=== PATIENT | female | born 1955 | race Caucasian/White ===

== ENCOUNTER 2016-12-20 15:18 | Emergency (ER) | payer OTHER ==
[~2016-12-20] VITALS: Ht 152.4 cm; Wt 72.0 kg
[~2016-12-20 15:18] MED LIST: CEPH500C3 PO; CLAR10TA7 PO; FLON0.053; LISI-360 PO; MEVA40TA PO; NEXI20CA PO
[2016-12-20 15:19] VITALS: BP 195/92; PULSE 66; RESP 20; TEMP 97.5; O2SAT 100
--- NOTE | 2016-12-20 15:23 | PD ---
Physical Exam Time Seen by Provider: 15:21 Narrative 61 y/o female presents for evaluation of laceration to L hand sustained at 12pm today while attempting to de-pit an avocado. Right handed. Vital signs reviewed. Seen at triage desk. Awaiting bed placement. Data Data Last Documented VS Vital Signs Date Time Temp Pulse Resp B/P Pulse Ox O2 Delivery O2 Flow Rate FiO2 12/20/16 15:19 97.5 66 20 195/92 100 Room Air [facility] Medical Record Reviewed: Yes Supervised Visit with NEO: Trevon Judd December 20, 2016 15:23
--- NOTE | 2016-12-20 16:09 | PD ---
HPI Chief Complaint: Laceration/Skin Injury Time Seen by Provider: 16:07 Travel History International Travel<30 days: No Contact w/Intl Traveler<30days: No Traveled to known affect area: No History of Present Illness HPI 61-year-old female presents to the emergency department complaining of a laceration to the palmar aspect of her left hand between the second and third digits from a knife while trying to get the pit out of an avocado. Reports being up-to-date on her tetanus vaccination. Denies paresthesias, loss of sensation, decreased range of motion, decreased strength to all fingers and hand. Apply pressure to control bleeding. Has not taken any medications to alleviate her symptoms. Has no other medical complaints. No other modifying factors or associated signs and symptoms. PFSH Past Medical History Hx Anticoagulant Therapy: No Asthma: Yes Anxiety: Yes Heart Rhythm Problems: No Cancer: Yes (OVARIAN/UTERUS) Cardiovascular Problems: No High Cholesterol: Yes Chemotherapy: No Chest Pain: No Cerebrovascular Accident: No Diabetes: No Diminished Hearing: No Endocrine: No GERD: Yes Genitourinary: Yes Hiatal Hernia: Yes (GERD) Hypertension: Yes Immune Disorder: No Kidney Stones: Yes Musculoskeletal: No Neurologic: No Psychiatric: Yes Respiratory: Yes (Asthma) Radiation Therapy: Yes Thyroid Disease: No Ulcer: Yes : 0 Para: 0 Miscarriage: 0 : 0 Past Surgical History Abdominal Surgery: Yes (25 LYMPH NODES REMOVED L ABDOMEN) Cardiac Surgery: No Ear Surgery: No Endocrine Surgery: No Eye Surgery: No Genitourinary Surgery: No Gynecologic Surgery: Yes (HYSTERECTOMY) Hysterectomy: Yes Oral Surgery: Yes (T & A) Pacemaker: No Thoracic Surgery: No Tympanostomy Tube: Yes Other Surgery: Yes (PORT PLACEMENT AND REMOVED, deviated septum) Social History Alcohol Use: No Tobacco Use: No Substance Use: No Allergies-Medications (Allergen,Severity, Reaction): Coded Allergies: Adrenalin (Verified Allergy, Severe, shortness of breath, 12/20/16) gave bronkephrine and this caused a problem also Biaxin (Verified Allergy, Severe, stomach aches, 12/20/16) Cipro (Verified Allergy, Intermediate, upsets stomach , 12/20/16) pt refusing to ever take med Reported Meds & Prescriptions Reported Meds & Active Scripts Active Reported Vesicare (Solifenacin) 5 Mg Tab 5 Mg PO DAILY Fosamax Plus D (Alendronate-Cholecalciferol) 70-2,800 Mg-Unit Tab 1 Tab PO Q7D Probiotic (Lactobacillus Acidophilus) 1 Cap Cap 1 Cap PO BID Calcium Plus Vitamin D3 (Calcium Carbonate-Cholecalciferol) 600-400 Mg-Unit Tab 1 Tab PO BID Nexium 24 HR (Esomeprazole DR) 20 Mg Capdr 20 Mg PO BID Zantac (Ranitidine HCl) 150 Mg Tab 150 Mg PO DAILY Fluticasone Nasal [place] 50 Mcg/Act Naspr 50 Mcg EACH NARE BID 50 mcg/spray Lovastatin 40 Mg Tab 80 Mg PO HS Singulair (Montelukast Sodium) 10 Mg Tab 10 Mg PO DAILY Lisinopril 10 Mg Tab 10 Mg PO DAILY Amoxicillin 500 Mg Cap 500 Mg PO TID Review of Systems Except as stated in HPI: all other systems reviewed are Neg Physical Exam Narrative GENERAL: Well-nourished, well-developed female patient, in no acute distress SKIN: Warm and dry. Palmar aspect of left hand with approximately 1 cm laceration to the webbed area between the second and third digits; bleeding controlled; fingers with full range of motion and sensory intact; fingers with good opposition. HEAD: Atraumatic. Normocephalic. EYES: Pupils equal and round. No scleral icterus. No injection or drainage. ENT: Mucosa pink and moist. Airway patent. NECK: Trachea midline. CARDIOVASCULAR: Regular rate. RESPIRATORY: No accessory muscle use. GASTROINTESTINAL: Round. MUSCULOSKELETAL: No obvious deformities. No clubbing. No cyanosis. No edema. NEUROLOGICAL: Awake and alert. Oriented 3. No obvious cranial nerve deficits. Motor grossly within normal limits. Normal speech. PSYCHIATRIC: Appropriate mood and affect; insight and judgment normal. Data Data Last Documented VS Vital Signs Date Time Temp Pulse Resp B/P Pulse Ox O2 Delivery O2 Flow Rate FiO2 12/20/16 15:19 97.5 66 20 195/92 100 Room Air Orders Lidocaine 1% Inj (50 Ml) (Xylocaine 1% I (12/20/16 16:15) [facility] Medical Decision Making Medical Screen Exam Complete: Yes Emergency Medical Condition: Yes Medical Record Reviewed: Yes Differential Diagnosis Laceration, contusion, abrasion Narrative Course 61-year-old female with a laceration to the palmar aspect of her left hand. See my procedure note for laceration repair. Patient is currently taking amoxicillin for ear infection. Tetanus is up-to-date. Patient verbalizes understanding and agreement with treatment plan. Patient is medically cleared and stable for discharge. Discussed reasons to return to the emergency department. Instructed patient to follow up with primary care provider. Patient agrees with treatment plan. The patients vital signs are stable and the patient is stable for outpatient follow-up and treatment. Patient discharged home, stable and in no acute distress. Procedures Procedure Narrative LACERATION LOCATION: Dorsal aspect of Left hand between the second and third digits LENGTH: 1 cm NUMBER OF STITCHES/RAMY: 2 simple interrupted stitches REPAIR: The area of the laceration was prepped with Betadine and sterilely draped. The laceration was infiltrated with 1% lidocaine. The wound was copiously irrigated and explored without evidence of foreign body, tendon injury or neurovascular injury. The wound was closed using 4-0 Prolene. This was a single layer repair. A sterile dressing was applied. The patient was advised to keep the dressing clean and dry. Patient tolerated the procedure well. Diagnosis Primary Impression: Laceration of left hand Qualified Code: S61.412A - Laceration of left hand, foreign body presence unspecified, initial encounter Referrals: Primary Care Physician Patient Instructions: Care For Your Stitches (ED), General Instructions, Laceration (ED) Additional Instructions: Keep area clean and dry Ibuprofen or Tylenol as directed and as needed for pain and inflammation Ice pack to area as needed to decrease pain Return to the emergency department or follow-up with primary care provider in 7- 10 days for suture removal Follow up with primary care provider Return to the emergency department immediately with worsening of symptoms, particularly if reddened streaks up or down the affected extremity from the suture site, fever, numbness/tingling in the affected extremity, loss of sensation in the affected extremity, severe swelling of the affected Med/Other Pt SpecificInfo: No Meds Exist/No RX given Disposition: 01 DISCHARGE HOME Condition: Stable Ioana Collier December 20, 2016 16:09
[2016-12-20] MEDS ORDERED: LIDOCAINE HCL 1% 50 ML VIAL INFIL ONE (16:15)
[2016-12-20] MEDS ORDERED: VESI5TAB PO (16:27)
[2016-12-20] MEDS ORDERED: AMOX500C PO (16:27)
[2016-12-20] MEDS ORDERED: ZANT150T2 PO (16:27)
[2016-12-20] MEDS ORDERED: FLUT50SP EACH NARE (16:27)
[2016-12-20] MEDS ORDERED: LACTCAP8 PO (16:27)
[2016-12-20] MEDS ORDERED: ESOM1CAP6 PO (16:27)
[2016-12-20] MEDS ORDERED: LOVA40TA PO (16:27)
[2016-12-20] MEDS ORDERED: LISI10TA3 PO (16:27)
[2016-12-20] MEDS ORDERED: MONT10TA2 PO (16:27)
[2016-12-20] MEDS ORDERED: FOSA70TA3 PO (16:27)
[2016-12-20] MEDS ORDERED: [UNRECOGNIZED DRUG - CODE] PO (16:27)
[2016-12-20 17:04] VITALS: BP 175/80; PULSE 64; RESP 20; O2SAT 100
== END 2016-12-20 17:11 | disposition home or self-care (01) ==
LOC: NEPD 15:18
DX: S61.412A Laceration without foreign body of left hand, initial encounter (principal); E78.00 Pure hypercholesterolemia, unspecified; I10 Essential (primary) hypertension; K21.9 Gastro-esophageal reflux disease without esophagitis; Z87.442 Personal history of urinary calculi
CPT/HCPCS: 12001

== ENCOUNTER 2016-12-28 10:34 | Emergency (ER) | payer OTHER ==
[~2016-12-28] VITALS: Ht 152.4 cm; Wt 71.5 kg
[~2016-12-28 10:34] MED LIST changes: +AMOX500C PO; -CEPH500C3 PO; -CLAR10TA7 PO; +ESOM1CAP6 PO; -FLON0.053; +FLUT50SP EACH NARE; +FOSA70TA3 PO; +LACTCAP8 PO; -LISI-360 PO; +LISI10TA3 PO; +LOVA40TA PO; -MEVA40TA PO; +MONT10TA2 PO; -NEXI20CA PO; +VESI5TAB PO; +ZANT150T2 PO; +[UNRECOGNIZED DRUG - CODE] PO
[2016-12-28 10:36] VITALS: BP 170/78; PULSE 68; RESP 20; TEMP 97.6; O2SAT 98
--- NOTE | 2016-12-28 10:57 | PD ---
Physical Exam Date Seen by Provider: Dec 28, 2016 Time Seen by Provider: 10:56 Data Data Last Documented VS Vital Signs Date Time Temp Pulse Resp B/P Pulse Ox O2 Delivery O2 Flow Rate FiO2 12/28/16 10:36 97.6 68 20 170/78 98 Room Air MDM Supervised Visit with NEO: No Narrative Course 61 YO female presents for suture removal left hand. Vitals reviewed. Bed placement pending. Brie Eid Dec 28, 2016 10:57
--- NOTE | 2016-12-28 11:30 | PD ---
HPI Chief Complaint: Wound/Suture/Staple Re-Check Time Seen by Provider: 11:22 Travel History International Travel<30 days: No Contact w/Intl Traveler<30days: No Traveled to known affect area: No History of Present Illness HPI 61-year-old female here for suture removal. Seen here 8 days ago with a small laceration to the left hand. 2 sutures were placed. She has no complaints. PFSH Past Medical History Hx Anticoagulant Therapy: No Asthma: Yes Anxiety: Yes Heart Rhythm Problems: No Cancer: Yes (OVARIAN/UTERUS REMISSION SINCE 2010) Cardiovascular Problems: No High Cholesterol: Yes Chemotherapy: Yes (6 years ago) Chest Pain: No Cerebrovascular Accident: No Diabetes: No Diminished Hearing: No Endocrine: No GERD: Yes Genitourinary: Yes Hiatal Hernia: Yes (GERD) Hypertension: Yes Immune Disorder: No Kidney Stones: Yes Musculoskeletal: No Neurologic: No Psychiatric: Yes Respiratory: Yes (Asthma) Radiation Therapy: Yes Thyroid Disease: No Ulcer: Yes : 0 Para: 0 Miscarriage: 0 : 0 Past Surgical History Abdominal Surgery: Yes (25 LYMPH NODES REMOVED L ABDOMEN) Cardiac Surgery: No Ear Surgery: No Endocrine Surgery: No Eye Surgery: No Genitourinary Surgery: No Gynecologic Surgery: Yes Hysterectomy: Yes Oral Surgery: Yes (T & A) Pacemaker: No Thoracic Surgery: No Tympanostomy Tube: Yes Other Surgery: Yes (PORT PLACEMENT AND REMOVED, deviated septum) Social History Alcohol Use: No Tobacco Use: No Substance Use: No Allergies-Medications (Allergen,Severity, Reaction): Coded Allergies: Adrenalin (Verified Allergy, Severe, shortness of breath, 12/20/16) gave bronkephrine and this caused a problem also Biaxin (Verified Allergy, Severe, stomach aches, 12/20/16) Cipro (Verified Allergy, Intermediate, upsets stomach , 12/20/16) pt refusing to ever take med Reported Meds & Prescriptions Reported Meds & Active Scripts Active Reported Vesicare (Solifenacin) 5 Mg Tab 5 Mg PO DAILY Fosamax Plus D (Alendronate-Cholecalciferol) 70-2,800 Mg-Unit Tab 1 Tab PO Q7D Probiotic (Lactobacillus Acidophilus) 1 Cap Cap 1 Cap PO BID Calcium Plus Vitamin D3 (Calcium Carbonate-Cholecalciferol) 600-400 Mg-Unit Tab 1 Tab PO BID Nexium 24 HR (Esomeprazole DR) 20 Mg Capdr 20 Mg PO BID Zantac (Ranitidine HCl) 150 Mg Tab 150 Mg PO DAILY Fluticasone Nasal [place] 50 Mcg/Act Naspr 50 Mcg EACH NARE BID 50 mcg/spray Lovastatin 40 Mg Tab 80 Mg PO HS Singulair (Montelukast Sodium) 10 Mg Tab 10 Mg PO DAILY Lisinopril 10 Mg Tab 10 Mg PO DAILY Amoxicillin 500 Mg Cap 500 Mg PO TID Review of Systems Musculoskeletal: No: Limited ROM, Pain Skin: Positive Other (positive for healing laceration, sutures) Neurologic: No: Paresthesia Physical Exam Narrative GENERAL: Well-nourished female in no acute distress SKIN: Warm and dry. Well healing laceration with [address] palmar aspect of left hand proximal second finger. Extremities: Skin as noted above. Full range of motion, sensation, capillary refill normal. Data Data Last Documented VS Vital Signs Date Time Temp Pulse Resp B/P Pulse Ox O2 Delivery O2 Flow Rate FiO2 12/28/16 10:36 97.6 68 20 170/78 98 Room Air MDM Medical Decision Making Medical Screen Exam Complete: Yes Emergency Medical Condition: Yes Medical Record Reviewed: Yes Differential Diagnosis Suture removal, wound dehiscence, infected wound Narrative Course The sutures were removed without incident. Diagnosis Primary Impression: Visit for suture removal Med/Other Pt SpecificInfo: Wound Care Disposition: 01 DISCHARGE HOME Condition: Stable Trevon Kelley Dec 28, 2016 11:30
== END 2016-12-28 11:48 | disposition home or self-care (01) ==
LOC: NEPK 10:34
DX: S61.412D Laceration without foreign body of left hand, subsequent encounter (principal); W26.0XXD Contact with knife, subsequent encounter; Z48.02 Encounter for removal of sutures
CPT/HCPCS: 99281

== ENCOUNTER 2017-01-17 14:07 | Emergency (ER) | payer OTHER ==
[~2017-01-17] VITALS: Ht 152.4 cm; Wt 70.0 kg
[2017-01-17 14:11] VITALS: BP 137/70; PULSE 74; RESP 20; TEMP 98; O2SAT 98
--- NOTE | 2017-01-17 14:36 | PD ---
HPI Chief Complaint: ENT Complaint Time Seen by Provider: 14:28 Travel History International Travel<30 days: No Contact w/Intl Traveler<30days: No Traveled to known affect area: No History of Present Illness HPI 61-year-old female presents the emergency Department with decreased hearing from the left ear for the past week. Patient states she's been trying to remove cerumen from the left ear with Cerumex drops and irrigation at home. Patient denies fever, chills, dizziness, or significant pain. She's had no drainage from the ear She is allergic to adrenaline, Biaxin, and Cipro. PFSH Past Medical History Hx Anticoagulant Therapy: No Asthma: Yes Anxiety: Yes Heart Rhythm Problems: No Cancer: Yes (OVARIAN/UTERUS REMISSION SINCE 2010) Cardiovascular Problems: No High Cholesterol: Yes Chemotherapy: Yes (6 years ago) Chest Pain: No Cerebrovascular Accident: No Diabetes: No Diminished Hearing: No Endocrine: No GERD: Yes Genitourinary: Yes Hiatal Hernia: Yes (GERD) Hypertension: Yes Immune Disorder: No Kidney Stones: Yes Musculoskeletal: No Neurologic: No Psychiatric: Yes Respiratory: Yes (Asthma) Radiation Therapy: Yes Thyroid Disease: No Ulcer: Yes : 0 Para: 0 Miscarriage: 0 : 0 Past Surgical History Abdominal Surgery: Yes (25 LYMPH NODES REMOVED L ABDOMEN) Cardiac Surgery: No Ear Surgery: No Endocrine Surgery: No Eye Surgery: No Genitourinary Surgery: No Gynecologic Surgery: Yes Hysterectomy: Yes Oral Surgery: Yes (T & A) Pacemaker: No Thoracic Surgery: No Tympanostomy Tube: Yes Other Surgery: Yes (PORT PLACEMENT AND REMOVED, deviated septum) Social History Alcohol Use: No Tobacco Use: No Substance Use: No Allergies-Medications (Allergen,Severity, Reaction): Coded Allergies: Adrenalin (Verified Allergy, Severe, shortness of breath, 01/17/17) gave bronkephrine and this caused a problem also Biaxin (Verified Allergy, Severe, stomach aches, 01/17/17) Cipro (Verified Allergy, Intermediate, upsets stomach , 01/17/17) pt refusing to ever take med Reported Meds & Prescriptions Reported Meds & Active Scripts Active Reported Vesicare (Solifenacin) 5 Mg Tab 5 Mg PO DAILY Fosamax Plus D (Alendronate-Cholecalciferol) 70-2,800 Mg-Unit Tab 1 Tab PO Q7D Probiotic (Lactobacillus Acidophilus) 1 Cap Cap 1 Cap PO BID Calcium Plus Vitamin D3 (Calcium Carbonate-Cholecalciferol) 600-400 Mg-Unit Tab 1 Tab PO BID Nexium 24 HR (Esomeprazole DR) 20 Mg Capdr 20 Mg PO BID Zantac (Ranitidine HCl) 150 Mg Tab 150 Mg PO DAILY Fluticasone Nasal [place] 50 Mcg/Act Naspr 50 Mcg EACH NARE BID 50 mcg/spray Lovastatin 40 Mg Tab 80 Mg PO HS Singulair (Montelukast Sodium) 10 Mg Tab 10 Mg PO DAILY Lisinopril 10 Mg Tab 10 Mg PO DAILY Amoxicillin 500 Mg Cap 500 Mg PO TID Review of Systems Except as stated in HPI: all other systems reviewed are Neg General / Constitutional: No: Fever Eyes: No: Visual changes HENT: Positive: Other (decreased hearing left ear.), No: Headaches, Vertigo, Lightheadedness, Sore Throat, Rhinitis, Rhinorrhea, Congestion, Nosebleed, Neck Stiffness, Neck Pain, Ear Discharge, Earache Cardiovascular: No: Chest Pain or Discomfort Respiratory: No: Shortness of Breath Gastrointestinal: No: Abdominal Pain Genitourinary: No: Dysuria Musculoskeletal: No: Pain Skin: No Rash Neurologic: No: Weakness Psychiatric: No: Depression Endocrine: No: Polydipsia Hematologic/Lymphatic: No: Easy Bruising Physical Exam Narrative GENERAL: Patient is in no acute distress. SKIN: Warm and dry. Normal color. Normal turgor. No rash. HEAD: Atraumatic. Normocephalic. EYES: Pupils equal and round. No scleral icterus. No injection or drainage. ENT: No nasal bleeding or discharge. Mucous membranes pink and moist. No sinus tenderness to palpation or percussion. Right TM is normal. Left TM shows small perforation at the 1 o'clock position. There is no erythema or other signs of trauma or infection. Patient is noted to have decreased hearing in the left compared to the right to eyad by confrontation. Pharynx is clear. Airway is patent. NECK: Trachea midline. Supple and nontender. CARDIOVASCULAR: Regular rate and rhythm. RESPIRATORY: No accessory muscle use. Clear to auscultation. Breath sounds equal bilaterally. MUSCULOSKELETAL: Extremities without clubbing, cyanosis, or edema. No obvious deformities. NEUROLOGICAL: Awake and alert. No obvious cranial nerve deficits. Motor grossly within normal limits. Five out of 5 muscle strength in the arms and legs. Normal speech. PSYCHIATRIC: Appropriate mood and affect; insight and judgment normal. Data Data Last Documented VS Vital Signs Date Time Temp Pulse Resp B/P Pulse Ox O2 Delivery O2 Flow Rate FiO2 01/17/17 14:11 98.0 74 20 137/70 98 Room Air MDM Medical Decision Making Medical Screen Exam Complete: Yes Emergency Medical Condition: Yes Differential Diagnosis Decreased hearing left ear. Cerumen impaction. TM perforation. Serous otitis. Narrative Course Patient is found to have a small perforation to the left TM. No infection is noted this time. Patient will be given Cortisporin optic drops to be used in the left ear daily for the next 2 weeks. Patient should follow with local primary care physician or ENT in the next 2 weeks to ensure improvement. Patient can return to emergency Department with worsening symptoms if necessary Diagnosis Primary Impression: Tympanic membrane perforation, marginal Qualified Code: H72.2X2 - Tympanic membrane perforation, marginal, left Referrals: Ear / Nose / Throat Specialist Primary Care Physician Patient Instructions: Antibiotic/Anti-inflammatory Combinations (Into the ear) , General Instructions Additional Instructions: Patient is found to have a small perforation to the left TM. No infection is noted this time. Patient will be given Cortisporin optic drops to be used in the left ear daily for the next 2 weeks. Patient should follow with local primary care physician or ENT in the next 2 weeks to ensure improvement. Patient can return to emergency Department with worsening symptoms if necessary Med/Other Pt SpecificInfo: Prescription(s) given Scripts [id number] Otic Drops 3.5-10,000-1 Mg-Units-% Soln4 Drop LEFT EAR QID #1 BOTTLE Ref 1 Prov:Michel Reyes MD 01/17/17 Disposition: 01 DISCHARGE HOME Condition: Stable Bradly Mckeon Jan 17, 2017 14:36
[2017-01-17] MEDS ORDERED: NEOM1SOL7 LEFT EAR (14:37)
== END 2017-01-17 15:16 | disposition home or self-care (01) ==
LOC: NEPK 14:07
DX: H72.2X2 Other marginal perforations of tympanic membrane, left ear (principal); I10 Essential (primary) hypertension; E78.00 Pure hypercholesterolemia, unspecified; Z87.09 Personal history of other diseases of the respiratory system; Z86.59 Personal history of other mental and behavioral disorders; Z87.19 Personal history of other diseases of the digestive system; Z87.448 Personal history of other diseases of urinary system
CPT/HCPCS: 99283